=== PATIENT | male | born 1970 | race Caucasian/White ===

== ENCOUNTER → 2017-05-20 | Outpatient (CLI) | payer MEDICAID | LOC: FLAB 09:33 | PROVIDERS: ATTEND Physician Assistant Medical | DX: R10.9 Unspecified abdominal pain (principal) ==

== ENCOUNTER → 2017-12-14 | Outpatient (CLI) | payer MEDICAID | LOC: BMCIMAGING 07:32 | PROVIDERS: ATTEND Internal Medicine | DX: K90.9 Intestinal malabsorption, unspecified (principal); K76.0 Fatty (change of) liver, not elsewhere classified ==

== ENCOUNTER → 2018-12-15 | Outpatient (CLI) | payer MEDICAID | LOC: GIMAGING 12:22 → EDSTATUS 17:03 | PROVIDERS: ATTEND Internal Medicine | DX: M79.671 Pain in right foot (principal) | CPT/HCPCS: 73630-PO ==